=== PATIENT | female | born 1960 | race Caucasian/White ===

== ENCOUNTER → 2019-12-15 | Day surgery (SDC) | payer OTHER ==
[~2019-12-15] MED LIST: ATORVASTATIN CA10 MG PO; BUPIVACAINE HCL 0.5% INJ 30 ML VIAL INJ ONE; CEFAZOLIN SOD 1 GM/NS 50ML 100 ML IV ONE; DEXAMETHASONE SOD PHOS INJ 4 MG/ML VIAL ONE; FENTANYL CITRATE/PF 100MCG/2 ML INJ ONE; LIDOCAINE HCL 2% LOCAL INJ 5 ML SDV VIAL INJ ONE; MELATONIN3 MG PO; METOCLOPRAMIDE HCL 10 MG/2ML VIAL ONE; MIDAZOLAM HCL 2 MG/2 ML VIAL ONE; ONDANSETRON HCL INJ 2MG/ML 2ML 2 MG/ML VIAL ONE; PROMETHAZINE HCL (IM) 25 MG/ML VIAL ONE; PROPOFOL IV EMULSION 10 MG/ML 20 ML VIAL ONE; SEVOFLURANE INHAL SOLN 250 ML PEN BTL ONE; SUGAMMADEX SODIUM 200 MG/2 ML VIAL IV ONE; SYNTHROID75 MCG PO; TELMISARTAN-HC1 EACH PO; TRAZODONE HCL50 MG PO; TRINTELLIX10 MG PO
--- OUTSIDE RECORDS SUMMARY | 2019-12-15 10:13 | XMS REPORT ---
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 Allergies, Adverse Reactions, Alerts Allergy Name Allergy Type Status Severity Reaction(s) Onset Date Inactive Date Treating Clinician Comments vancomycin DA Active U 2004-06-25 00:00:00 No Known Contrast Allergies DA Active U 2004-06-25 00:00:00 No Known Food Allergies DA Active U 2004-06-25 00:00:00 No Known Other Allergies DA Active U 2004-06-25 00:00:00 VANCOMYCIN DA Active U 2004-06-25 00:00:00 Medications This patient has no known medications. Results Test Description Test Time Test Comments Text Results Atomic Results Result Comments - CT ABD PELVIS W/O CONT 2019-11-27 14:32:00 Name: JANET PEÑA [facility] : 1960 Age/S: 59 / F [address] [facility] Unit #: [id number] Loc: [place] [address] Phys: Cuate Tierney MD Acct: [id number] Dis Date: Status: REG CLI PHONE #: [phone] Exam Date: 11/27/2019 1306 FAX #: [phone] Reason: PO CONTRAST ONLY EXAMS: CPT CODE: [id number] CT ABD PELVIS W/O CONT 11131 HISTORY: Periumbilical swelling or mass. COMPARISON: None available. CT abdomen and pelvis without IV and with oral contrast: Automated exposure control. Location: TH. CT abdomen: The lung bases are clear. Noncontrast liver is unremarkable. Patient is post cholecystectomy. The liver measured 18 cm in length. No architectural distortion. Unremarkable spleen. The stomach distended incompletely with thickened distal esophagus. Noncontrast pancreas and adrenals are normal. Kidneys are free from hydroureteronephrosis. No calyceal stones. No pathologic adenopathy. Unremarkable unopacified vasculature. No bowel obstruction or colitis or diverticulitis or enteritis. CT PELVIS: Patient appears to be post appendectomy. Correlate with surgical history. Pelvic bowel loops are unobstructed. Unremarkable urinary bladder with pessary ring. Patient is post hysterectomy. Left ovary is seen. Right ovary is not seen. No pelvic pathologic adenopathy. Subcutaneous tissues and the musculature demonstrating mild thickening of the rectus muscle at the level of the umbilicus measuring 2.3 cm in AP direction, 2.6 cm with and 3 cm in length. Etiology is not clear. Average Hounsfield unit measurement of 40. This could represent hematoma or muscle hypertrophy. No other lesions visible. No drainable fluid collections. No lytic or blastic lesions are noted within the bony skeleton. Posterior lateral fusion pedicular screws bilaterally from L4 through PAGE 1 Signed Report (CONTINUED) Name: JANET PEÑA [facility] : 1960 Age/S: 59 / F [address] [facility] Unit #: [id number] Loc: [place] [address] Phys: Cuate Tierney MD Acct: [id number] Dis Date: Status: REG CLI PHONE #: [phone] Exam Date: 11/27/2019 1308 FAX #: [phone] Reason: PO CONTRAST ONLY EXAMS: CPT CODE: [id number] CT ABD PELVIS W/O CONT 79586 <Continued> L5 level with posterior decompression. DJD. IMPRESSION: Thickened rectus muscle at the level of the umbilicus slightly towards the right of the midline measuring approximately 3 x 2.3 x 2.6 cm. Differential diagnosis with include muscle hypertrophy are small hematoma. No other acute intra-abdominal or intrapelvic pathology. at 1432 Reported and signed by: Keith Alatorre M.D. CC: Mariela Sevilla MD Technologist:Louise Cee RT(R),CT; CTDI: DLP: Trnscb Date/Time: 11/27/2019 (1432) [email or web address] Orig Print D/T: S: 11/27/2019 (1267) PAGE 2 Signed Report
[2019-12-15 14:30] VITALS: BP 126/64
--- NOTE | 2019-12-15 20:51 | Operative Report ---
DATE OF PROCEDURE: 12/15/2019 SURGEON: Cuate Tierney MD PREOPERATIVE DIAGNOSES: Abdominal pain, peritoneal adhesions. POSTOPERATIVE DIAGNOSES: Abdominal pain, peritoneal adhesions. PROCEDURES: Diagnostic laparoscopy, laparoscopic lysis of adhesions. OPERATIONS RESEARCH GROUP MANAGER: None. ANESTHESIA: General endotracheal. INDICATIONS AND FINDINGS: The patient is a 59-year-old female, who has had complaints of lower abdominal pain. Surgery based on adhesions in the midline involving omentum. The small bowel appeared normal with no adhesions. The colon also appeared normal with no abnormalities noted. Liver, stomach also appeared normal. There was no hernia. There was no mass. Pelvic organs were without adhesions. TECHNIQUE: After adequate general endotracheal anesthesia, patient in supine position, the abdomen was prepped and draped in a sterile fashion with ChloraPrep solution. On the left side of the abdomen, where there was a previous surgery, skin and subcutaneous tissue were infiltrated with 0.5% Marcaine. Incision was made. Abdominal wall was elevated and Veress needle was introduced. Pneumoperitoneum was then created. A 5 mm trocar and cannula were then passed through this wound. Laparoscopic camera was introduced. Initial laparoscopy revealed adhesions in the midline involving omentum. The liver appeared normal. The stomach and diaphragmatic surfaces all appeared normal with no adhesions. In the upper abdomen, no mass seen. A 5 mm trocar and cannula were placed in left upper quadrant. The adhesions in the midline were lysed using a LigaSure device. These involved the omentum. There were lysed completely freeing the omentum completely from abdominal wall from the brim of the pelvis. Once the omentum was free, it was retracted away from lower abdomen. Small bowel was examined in its entirety. There were no adhesions involving the small bowel. No mass is seen. The mesentery appeared normal. There were no adhesions to the pelvis. Colon what could be seen overall appeared normal with no mass seen. No inflammatory changes. There was no free fluid in the abdomen. The peritoneal cavity was then irrigated with saline, inspected for hemostasis, which was seen to be adequate. It was irrigated further with saline. All fluid aspirated and inspected for hemostasis, which was seen to be adequate. Instruments and cannulas were removed. Pneumoperitoneum was evacuated. The wounds were then closed. Skin at the each wound closed with subcuticular sutures of 4-0 Vicryl. Dermabond and sterile dressing were applied. The patient tolerated the procedure well. Estimated blood loss was 5 mL there were no complications. All counts were correct. The patient was taken to the recovery room in satisfactory condition. MD LISSY SamuelsG/MODL /[id number] cc: Mariela Sevilla MD
== END | disposition home or self-care (01) ==
LOC: OR 10:05
PROVIDERS: ATTEND Surgery
DX: K66.0 Peritoneal adhesions (postprocedural) (postinfection) (principal); R10.9 Unspecified abdominal pain; Z01.810 Encounter for preprocedural cardiovascular examination; I10 Essential (primary) hypertension; E03.8 Other specified hypothyroidism; Z91.041 Radiographic dye allergy status
CPT/HCPCS: 44180; 93005; J0690; J1100; J2001; J2250; J2405; J2550; J2704; J2765; J3010

== ENCOUNTER → 2020-04-01 | Outpatient (CLI) | payer OTHER ==
[~2020-04-01] MED LIST changes: -BUPIVACAINE HCL 0.5% INJ 30 ML VIAL INJ ONE; -CEFAZOLIN SOD 1 GM/NS 50ML 100 ML IV ONE; -DEXAMETHASONE SOD PHOS INJ 4 MG/ML VIAL ONE; -FENTANYL CITRATE/PF 100MCG/2 ML INJ ONE; -LIDOCAINE HCL 2% LOCAL INJ 5 ML SDV VIAL INJ ONE; -METOCLOPRAMIDE HCL 10 MG/2ML VIAL ONE; -MIDAZOLAM HCL 2 MG/2 ML VIAL ONE; -ONDANSETRON HCL INJ 2MG/ML 2ML 2 MG/ML VIAL ONE; -PROMETHAZINE HCL (IM) 25 MG/ML VIAL ONE; -PROPOFOL IV EMULSION 10 MG/ML 20 ML VIAL ONE; -SEVOFLURANE INHAL SOLN 250 ML PEN BTL ONE; -SUGAMMADEX SODIUM 200 MG/2 ML VIAL IV ONE
--- NOTE | 2020-04-01 14:45 | Diagnostic Imaging Report ---
Abdominal ultrasound. History: Abdominal pain. Comparison: None available. Discussion: Transverse and longitudinal images of the abdomen were obtained demonstrating a liver of normal size but diffusely increased echogenicity measuring 14.2 cm in length. The portal vein is patent with hepatopetal flow and is dilated measuring 19 mm in diameter. The biliary tree is within normal limits with the common bile duct measuring 4 mm in diameter. The gallbladder is absent. The kidneys are normal in size and echogenicity bilaterally without evidence of hydronephrosis, stones, or mass. The right kidney measures 11.5 cm and the left kidney measures 11.6 cm in length. The spleen is mildly enlarged measuring 13.2 cm in length. The pancreatic head and body are visualized and are normal in appearance. The abdominal aorta and IVC are within normal limits. There is no evidence of free fluid. IMPRESSION: 1. Diffuse fatty infiltration of the liver without focal hepatic abnormality. Correlate with LFTs. There are also findings suggestive of portal hypertension. 2. Status post cholecystectomy. Signed by: Yuval Vincent on 04/01/2020 2:42 PM
--- NOTE | 2020-04-01 14:46 | Diagnostic Imaging Report ---
Pelvic ultrasound. History: Lower abdominal pain. Comparison: None available. Discussion: Transabdominal evaluation of the pelvis was performed in the transverse and longitudinal planes. The uterus and ovaries are nonvisualized. There is no evidence of an adnexal mass. There is no evidence of free fluid. IMPRESSION: Status post hysterectomy. No abnormality identified. Signed by: Yuval Vincent on 04/01/2020 2:43 PM
== END ==
LOC: US 11:39
PROVIDERS: ATTEND Internal Medicine Gastroenterology
DX: R10.10 Upper abdominal pain, unspecified (principal)
CPT/HCPCS: 76700; 76856

== ENCOUNTER → 2020-04-04 | Day surgery (SDC) | payer OTHER ==
[~2020-04-04] MED LIST changes: +LIDOCAINE HCL 2% LOCAL INJ 5 ML SDV VIAL INJ ONE; +MIDAZOLAM HCL 2 MG/2 ML VIAL ONE; +PANTOPRAZOLE 40 MG 10ML VIAL ONE; +PROPOFOL IV EMULSION 10 MG/ML 20 ML VIAL ONE
[2020-04-04 12:20] VITALS: BP 123/70
--- NOTE | 2020-04-05 10:28 | Operative Report ---
DATE OF PROCEDURE: 04/04/2020 SURGEON: Claus Aranda MD PROCEDURE: EGD with biopsies. INDICATIONS FOR EGD: Upper abdominal pain, bloating. MEDICATIONS: The patient was done under MAC, please see anesthesiologist's note. PROCEDURE IN DETAIL: With the patient in the left lateral decubitus position, the flexible fiberoptic Olympus gastroscope was introduced into the esophagus under direct visualization without any difficulty. There was some patchy erythema noted in distal esophagus. The GE junction was somewhat nodular and biopsies were obtained. The scope was then advanced with ease into the stomach traversing a small sliding hiatal hernia. Mucosa overlying the antrum and the body revealed some patchy erythema and [id number] edema, and biopsies were obtained and sent to stain for H. pylori. Pylorus was of normal contour and shape, was intubated with ease and the scope was advanced all the way to the second portion of the duodenum. Biopsies were obtained from the proximal second portion and the duodenal bulb to rule out sprue. A minute nodule was also biopsied from the duodenal bulb. The scope was then withdrawn back into the stomach and retroflexed, and the mucosa overlying the fundus as well as the cardia grossly appeared to be within normal limits. The scope was then straightened out, it was subsequently withdrawn, and the patient tolerated the procedure well. IMPRESSION: 1. Distal esophagitis, mild. 2. GE junction with minimal nodularity, biopsied. 3. Small sliding hiatal hernia. 4. Gastritis, biopsied, biopsies sent to stain for Helicobacter pylori. 5. Duodenal bulb nodule, biopsied. 6. Rule out sprue. PLAN: Follow up histology. Initiate Protonix 40 mg one p.o. q.a.m. before meals. Claus Aranda MD [facility] [place]/MODL /[id number] cc: Mariela Sevilla MD
== END | disposition home or self-care (01) ==
LOC: OR 08:40
PROVIDERS: ATTEND Internal Medicine Gastroenterology
DX: K29.50 Unspecified chronic gastritis without bleeding (principal); K29.80 Duodenitis without bleeding; K31.89 Other diseases of stomach and duodenum; K20.9 Esophagitis, unspecified; K22.8 Other specified diseases of esophagus; K44.9 Diaphragmatic hernia without obstruction or gangrene; K59.09 Other constipation; Z86.010 Personal history of colon polyps; R63.5 Abnormal weight gain; G47.33 Obstructive sleep apnea (adult) (pediatric); I10 Essential (primary) hypertension; Z91.041 Radiographic dye allergy status; Z01.810 Encounter for preprocedural cardiovascular examination; Z01.812 Encounter for preprocedural laboratory examination; Z11.59 Encounter for screening for other viral diseases; Z68.42 Body mass index [BMI] 45.0-49.9, adult
CPT/HCPCS: 43239; 87635; 93005; C9113; J2001; J2250; J2704

== ENCOUNTER → 2021-03-07 | Day surgery (SDC) | payer OTHER ==
[~2021-03-07] MED LIST changes: +COLESTIPOL HCL1 GM PO; +GLUCAGON FOR INJ 1 MG VIAL ONE; +HYOSCYAMINE SULFATE 0.5 MG/ML INJ ONE; +ONDANSETRON HCL INJ 2MG/ML 2ML 2 MG/ML VIAL ONE; -PANTOPRAZOLE 40 MG 10ML VIAL ONE
[2021-03-07 11:25] VITALS: BP 119/70
[2021-03-07 11:44] LABS: WBC,FECAL (FECAL LACTOFERRIN) NEGATIVE (NEGATIVE)
[2021-03-07 14:48] LABS: C DIFFICILE TOXIN A&B AMP PROB NEGATIVE (NEGATIVE)
== END | disposition home or self-care (01) ==
LOC: OR 07:44
PROVIDERS: ATTEND Internal Medicine Gastroenterology
DX: K52.9 Noninfective gastroenteritis and colitis, unspecified (principal); D12.4 Benign neoplasm of descending colon; D12.5 Benign neoplasm of sigmoid colon; K29.70 Gastritis, unspecified, without bleeding; K20.90 Esophagitis, unspecified without bleeding; K21.9 Gastro-esophageal reflux disease without esophagitis; K57.30 Diverticulosis of large intestine without perforation or abscess without bleeding; K62.89 Other specified diseases of anus and rectum; K64.8 Other hemorrhoids; G47.33 Obstructive sleep apnea (adult) (pediatric); I10 Essential (primary) hypertension; E03.9 Hypothyroidism, unspecified; E78.00 Pure hypercholesterolemia, unspecified; F32.9 Major depressive disorder, single episode, unspecified; Z91.041 Radiographic dye allergy status; Z01.810 Encounter for preprocedural cardiovascular examination; Z01.812 Encounter for preprocedural laboratory examination; Z20.822 Contact with and (suspected) exposure to COVID-19; Z68.42 Body mass index [BMI] 45.0-49.9, adult; Z80.0 Family history of malignant neoplasm of digestive organs
CPT/HCPCS: 45380; 45385; 83630; 83993; 87045; 87177; 87328; 87493; 93005; J1610; J1980; J2001; J2250; J2405; J2704; U0002; 45378

== ENCOUNTER → 2022-11-05 | Day surgery (SDC) | payer OTHER ==
[2022-11-02 11:49] LABS: CALCIUM 8.8 mg/dL (8.4-10.2); CREATININE, SERUM 0.94 mg/dL (0.57-1.11)
[~2022-11-05] MED LIST changes: +ACETAMINOPHEN 1000 MG/100 ML 100 ML IV ONE; +BUPIVACAINE HCL 0.5% INJ 30 ML VIAL INJ ONE; +CEFAZOLIN SODIUM 2 GM ONE; +FENTANYL CITRATE/PF 100MCG/2 ML INJ ONE; -GLUCAGON FOR INJ 1 MG VIAL ONE; -HYOSCYAMINE SULFATE 0.5 MG/ML INJ ONE; +KETOROLAC TROMETHAMINE 30 MG/ML VIAL ONE; +METFORMIN HCL500 M1 PO; -MIDAZOLAM HCL 2 MG/2 ML VIAL ONE; +MOUNJARO2.5 MG/0.5 SQ; +POVIDONE IODINE 0.05% 0.05 % ML PO ONE; +ROCURONIUM BROMIDE 10 MG/ML 5ML VIAL IV ONE; +SCOPOLAMINE 1 MG PATCH ONE; +SEVOFLURANE INHAL SOLN 250 ML PEN BTL ONE; +SUCCINYLCHOLINE CHLORIDE 20 MG/ML 10ML VIAL ONE
[2022-11-05 14:20] VITALS: BP 119/60
== END | disposition home or self-care (01) ==
LOC: OR 09:40
PROVIDERS: ATTEND Podiatrist Foot & Ankle Surgery
DX: M66.871 Spontaneous rupture of other tendons, right ankle and foot (principal); M24.574 Contracture, right foot; M25.774 Osteophyte, right foot; E11.9 Type 2 diabetes mellitus without complications; I10 Essential (primary) hypertension; E78.5 Hyperlipidemia, unspecified; E66.01 Morbid (severe) obesity due to excess calories; M19.90 Unspecified osteoarthritis, unspecified site; Z91.041 Radiographic dye allergy status; Z01.812 Encounter for preprocedural laboratory examination; Z79.84 Long term (current) use of oral hypoglycemic drugs; Z79.899 Other long term (current) drug therapy
CPT/HCPCS: 27654; 27687; 28119; 36415 ×2; 80048; 82948; J0131; J0330; J1885; J2001; J2405; J2704; J3010; Q4150; 76000

== ENCOUNTER → 2024-07-21 | Day surgery (SDC) | payer OTHER ==
[~2024-07-21] MED LIST changes: -ACETAMINOPHEN 1000 MG/100 ML 100 ML IV ONE; -BUPIVACAINE HCL 0.5% INJ 30 ML VIAL INJ ONE; -CEFAZOLIN SODIUM 2 GM ONE; -FENTANYL CITRATE/PF 100MCG/2 ML INJ ONE; +GLUCAGON FOR INJ 1 MG VIAL ONE; +GLYCOPYRROLATE INJ 0.2 MG/ML VIAL ONE; -KETOROLAC TROMETHAMINE 30 MG/ML VIAL ONE; +LEXAPRO20 MG PO; +MICARDIS80 MG PO; +NEURONTIN300 MG PO; -POVIDONE IODINE 0.05% 0.05 % ML PO ONE; +PROPOFOL IV EMULSION 10 MG/ML 50 ML VIAL IV ONE; +PROPOFOL IV EMULSION 50 ML IV ONE; -ROCURONIUM BROMIDE 10 MG/ML 5ML VIAL IV ONE; -SCOPOLAMINE 1 MG PATCH ONE; -SEVOFLURANE INHAL SOLN 250 ML PEN BTL ONE; -SUCCINYLCHOLINE CHLORIDE 20 MG/ML 10ML VIAL ONE
[2024-07-21] MEDS: LACTATED RINGER'S 1,000 ML ONE (06:09)
[2024-07-21 08:59] VITALS: TEMP 97.4
[2024-07-21 09:15] VITALS: BP 116/96; PULSE 57; RESP 16; O2SAT 100
== END | disposition home or self-care (01) ==
LOC: OR 06:04
PROVIDERS: ATTEND Internal Medicine Gastroenterology
DX: Z09 Encounter for follow-up examination after completed treatment for conditions other than malignant neoplasm (principal); D12.3 Benign neoplasm of transverse colon; K62.1 Rectal polyp; K57.30 Diverticulosis of large intestine without perforation or abscess without bleeding; K64.8 Other hemorrhoids; G47.33 Obstructive sleep apnea (adult) (pediatric); I10 Essential (primary) hypertension; E78.5 Hyperlipidemia, unspecified; E03.9 Hypothyroidism, unspecified; E66.01 Morbid (severe) obesity due to excess calories; F41.9 Anxiety disorder, unspecified; F43.10 Post-traumatic stress disorder, unspecified; F32.A Depression, unspecified; Z91.041 Radiographic dye allergy status; Z01.810 Encounter for preprocedural cardiovascular examination; Z79.899 Other long term (current) drug therapy
CPT/HCPCS: 45385; 93005; J1610; J2001; J2405; J2704 ×2; J7121; 45378